=== PATIENT | female | born 1985 ===

== ENCOUNTER 2017-12-09 10:35 | Emergency (ER) | payer OTHER ==
[2017-12-09 10:46] VITALS: O2SAT 100
--- NOTE | 2017-12-09 12:03 | ED PDOC ---
HPI: Abdomen Time Seen by Provider: 12/09/17 11:36 Chief Complaint (Nursing): Female Genitourinary Chief Complaint (Provider): Right sided abdominal pain History Per: Patient History/Exam Limitations: no limitations Onset/Duration Of Symptoms: Days (x1) Current Symptoms Are (Timing): Still Present Associated Symptoms: denies: Fever, Chills, Back Pain, Urinary Symptoms ( vaginal bleeding) Additional Complaint(s): Lianne Huffman is a 32 year old female, with a past medical history of Lupus and thyroid problems, who presents to the emergency department complaining of a constant right sided abdominal pain onset since yesterday. Patient is x5 weeks , and LMP was on 10/27/17. Patient was seen by Dr. Analy Diaz, OB- GMAT INSTRUCTOR, who did blood work and revealed a hCG of [phone] as of December 07. Patient saw OB again today for the pain and he advised her to come to ED for ultrasound. She reports nausea, x1 vomiting episode and vaginal spotting but denies any vaginal bleeding, back pain, fever or chills. No further medical complaints. OB-GMAT INSTRUCTOR: Dr. Analy Diaz. Abnormal Vaginal Bleeding: No Last Menstral Period: 10/27/17 Past Medical History Reviewed: Historical Data, Nursing Documentation, Vital Signs Vital Signs: Last Vital Signs Temp 98.0 F 12/09/17 16:33 Pulse 81 12/09/17 16:33 Resp 18 12/09/17 16:33 BP 128/74 12/09/17 16:33 Pulse Ox 100 12/09/17 16:33 - Medical History Other PMH: Lupus, thyroid problems - Surgical History Surgical History: No Surg Hx - Family History Family History: States: Unknown Family Hx - Allergies Allergies/Adverse Reactions: Allergies Allergy/AdvReac Type Severity Reaction Status Date / Time No Known Allergies Allergy Verified 12/09/17 11:29 Review of Systems ROS Statement: Except As Marked, All Systems Reviewed And Found Negative Constitutional: Negative for: Fever, Chills Gastrointestinal: Positive for: Nausea, Vomiting, Abdominal Pain (right sided) Genitourinary Female: Negative for: Vaginal Bleeding Musculoskeletal: Negative for: Back Pain Physical Exam - Reviewed Nursing Documentation Reviewed: Yes Vital Signs Reviewed: Yes - Physical Exam Appears: Positive for: Non-toxic, No Acute Distress Head Exam: Positive for: ATRAUMATIC, NORMAL INSPECTION, NORMOCEPHALIC Skin: Positive for: Normal Color, Warm, Dry Eye Exam: Positive for: Normal appearance, EOMI, PERRL Neck: Positive for: Painless ROM, Supple Cardiovascular/Chest: Positive for: Regular Rate, Rhythm. Negative for: Murmur Respiratory: Positive for: Normal Breath Sounds. Negative for: Respiratory Distress Gastrointestinal/Abdominal: Positive for: Tenderness (mild RLQ) Back: Positive for: Normal Inspection Extremity: Positive for: Normal ROM (upper and lower extremities). Negative for : Deformity, Swelling Neurologic/Psych: Positive for: Alert, Oriented. Negative for: Motor/Sensory Deficits - Laboratory Results Result Diagrams: 12/09/17 12:30 12/09/17 12:30 - ECG O2 Sat by Pulse Oximetry: 100 (RA) Pulse Ox Interpretation: Normal Medical Decision Making Medical Decision Making: Time: 11:36 Initial Impression: abdominal pain. Differential includes complications such as ectopic, threatened miscarriage and UTI. Initial Plan: --Type and screen --BMP -- serum --Urine --Urine dipstick --CBC w/ differential --OB Transvaginal [US] --Reevaluation 14:10 Transvaginal US FINDINGS: LMP: 10/27/2017 Prior examinations from the current : None TECHNIQUE: Real-time 2D imaging, duplex and color Doppler. FINDINGS: Cardiac activity: Present Rate: 121 BPM Measurements: [place] rump length: 0.57 cm Gestational age based on CRL 6 weeks 2 days. Gestational age 6 weeks 2 days based on gestational sac measurement 1.83 cm Gestational age derived from LMP: 6 weeks 1 day TONI based on LMP: 08/03/2018 TONI based on biometry: 08/02/2018 Gestational concordance documented Yolk sac identified Uterus: Unremarkable. Cervix: No Cervical abnormalities: Negative examination for cervical dilatation or effacement. Closed cervix measuring 4.3 cm Subchorionic hemorrhage: None UTERUS: 4.4 x 5.3 x 8.1 cm. ADNEXA: Right: 1.5 x 1.6 x 2.1 cm. Normal Doppler arterial waveform documented. Left: 1.7 x 1.9 x 2.8 cm. Normal Doppler arterial waveform documented Fluid in the cul-de-sac: None IMPRESSION: 6 weeks 2 days live intrauterine gestation. Gestational concordance documented. 16:05 -Spoke with Dr. Diaz. Discussed case and findings. Patient is medically stable for discharge and advised to follow up with him in his office in a couple of days. ----- Scribe Attestation: Documented by Erick Bowman, acting as a scribe for Des Bobo MD. Provider Scribe Attestation: All medical record entries made by the Scribe were at my direction and personally dictated by me. I have reviewed the chart and agree that the record accurately reflects my personal performance of the history, physical exam, medical decision making, and the department course for this patient. I have also personally directed, reviewed, and agree with the discharge instructions and disposition. Disposition - Clinical Impression Clinical Impression: Pelvic pain affecting - Patient ED Disposition Is Patient to be Admitted: No Discussed With : Jarrell Diaz Doctor Will See Patient In The: Office Counseled Patient/Family Regarding: Studies Performed, Diagnosis, Need For Followup - Disposition Referrals: Jarrell Diaz MD [Staff Provider] - Disposition: Routine/Home Disposition Time: 16:10 Condition: GOOD Additional Instructions: Return for worsening. Follow up with your brazing machine tender in 2 days. Instructions: Threatened Miscarriage (DC)
[2017-12-09 12:41] LABS: BASO % 0.7 % (0.0-2.0); EOS % 0.4 % (0.0-4.0); HEMOGLOBIN 14.3 g/dL (12.0-16.0); LYMPH # 1.2 K/uL (1.0-4.3); LYMPH % 19.6 % (20.0-40.0); MEAN CELL VOLUME 91.3 fl (81.0-99.0); MEAN CORPUSCULAR HEMOGLOBIN 31.4 pg (27.0-31.0); MEAN CORPUSCULAR HGB CONC 34.4 g/dL (33.0-37.0); MEAN PLATELET VOLUME 9.8 fl (7.2-11.7); MONO # 0.4 K/uL (0.0-0.8); MONO % 6.8 % (0.0-10.0); NEUT # 4.5 K/uL (1.8-7.0); NEUT % 72.5 % (50.0-75.0); NRBC % 0.1 % (0.0-0.0); RBC 4.55 Mil/uL (3.80-5.20); RED CELL DISTRIBUTION WIDTH 13.7 % (11.5-14.5); WHITE BLOOD COUNT 6.3 K/uL (4.8-10.8)
[2017-12-09 13:35] LABS: BLOOD UREA NITROGEN 9 mg/dl (7-17); CALCIUM 9.3 mg/dL (8.4-10.2); GFR NON-AFRICAN AMERICAN > 60
--- NOTE | 2017-12-09 14:12 | US ---
Date of service: 12/09/2017 PROCEDURE: 1st trimester ultrasound HISTORY: Unilateral right-sided pelvic pain COMPARISON: None available. TECHNIQUE: Standard protocol for this study/examination. FINDINGS: LMP: 10/27/2017 Prior examinations from the current : None TECHNIQUE: Real-time 2D imaging, duplex and color Doppler. FINDINGS: Cardiac activity: Present Rate: 121 BPM Measurements: [place] rump length: 0.57 cm Gestational age based on CRL 6 weeks 2 days. Gestational age 6 weeks 2 days based on gestational sac measurement 1.83 cm Gestational age derived from LMP: 6 weeks 1 day TONI based on LMP: 08/03/2018 TONI based on biometry: 08/02/2018 Gestational concordance documented Yolk sac identified Uterus: Unremarkable. Cervix: No Cervical abnormalities: Negative examination for cervical dilatation or effacement. Closed cervix measuring 4.3 cm Subchorionic hemorrhage: None UTERUS: 4.4 x 5.3 x 8.1 cm. ADNEXA: Right: 1.5 x 1.6 x 2.1 cm. Normal Doppler arterial waveform documented. Left: 1.7 x 1.9 x 2.8 cm. Normal Doppler arterial waveform documented Fluid in the cul-de-sac: None IMPRESSION: 6 weeks 2 days live intrauterine gestation. Gestational concordance documented.
[2017-12-09 16:17] VITALS: RESP 18
[2017-12-09 16:39] VITALS: BP 128/74; PULSE 81; TEMP 98
== END 2017-12-09 16:30 | disposition home or self-care (01) ==
LOC: H.ER 10:35
DX: O26.91 Pregnancy related conditions, unspecified, first trimester (principal); R10.2 Pelvic and perineal pain; M32.9 Systemic lupus erythematosus, unspecified